=== PATIENT | female | born 1990 | race Caucasian/White ===

== ENCOUNTER 2016-12-27 16:59 | Emergency (ER) | payer SELFPAY ==
--- NOTE | ~2016-12-27 | ER ---
PATIENT'S NAME: [facility] AGE: 26 Y [address] ROOM: [place] [address] LOCATION: [facility] ADMIT DATE: 12/27/2016 ER/Outpatient Report DISCHARGE DATE: 12/27/2016 FAMILY PHYSICIAN: Kiko Chadwick MD ATTENDING PHYSICIAN: Kraig Lee TIME OF ARRIVAL: 1701 hours. TIME OF EXAM: 1701 hours. CHIEF COMPLAINT: Back pain. HISTORY OF PRESENT ILLNESS: The patient was seen today at [facility] by Dr. Chadwick, diagnosed with a UTI, was given a shot of an antibiotic and a prescription for Levaquin and Zofran. They told her and her if things were no better that she should come to the hospital. Symptoms all began approximately 7 days ago, intensified in the last 2 days, and that she developed a fever. She did take some Tylenol this morning, but has not had any this afternoon. ALLERGIES: NO KNOWN ALLERGIES. MEDICATIONS: No current medications. PAST MEDICAL HISTORY: Benign. PAST SURGERIES: Negative. SOCIAL HISTORY: Lives with her . Denies use of alcohol, drugs, or tobacco. REVIEW OF SYSTEMS: All negative other than those mentioned in the HPI. PHYSICAL EXAMINATION: VITAL SIGNS: Weight 69.2 kg. Blood pressure is 105/73, pulse of 135, respirations 16, temp of 103.6, and O2 sat is 98% on room air. GENERAL: She is awake, alert, and oriented x4. PATIENT'S NAME: [facility] AGE: 26 Y [address] ROOM: [place] [address] LOCATION: [facility] ADMIT DATE: 12/27/2016 ER/Outpatient Report DISCHARGE DATE: 12/27/2016 FAMILY PHYSICIAN: Kiko Chadwick MD ATTENDING PHYSICIAN: Kraig Lee SKIN: [place], warm, and dry. RESPIRATIONS: Even and nonlabored. Lung sounds are clear throughout. HEART: Regular rate and rhythm, tachycardic. ABDOMEN: Soft and nondistended. Bowel sounds are present. She is tender in the right flank area. EMERGENCY DEPARTMENT COURSE: Saline lock was initiated. Fluids of normal saline were started at a wide- open rate. She was given Zofran 4 mg IV. Lab work was drawn. CBC was within normal limits. Chem panel: Sodium is 135, potassium 3.3, chloride 101, and BUN is 7 with a creatinine 0.9. She was monitored for approximately half-an- hour and states her stomach was feeling better. She was given Tylenol 1000 mg p.o. Continue to monitor. When fluids were completed she states she was feeling better. Recheck vital signs show blood pressure of 101/60, pulse of 116, respirations 16, temp of 101.1, and O2 sats continues to be 97% on room air. IMPRESSION: Recent urinary tract infection and mild dehydration. PLAN: The patient will be discharged home. Rest, fluids. Take the Levaquin as prescribed. Take the Zofran as needed. Tylenol or ibuprofen routinely for fever. Follow up with Dr. Chadwick if symptoms persist in the next 2-3 days or return to the ER. Her and her verbalized understanding. MELANY ZIMMER APRN FOR [facility]/gladys /[id number] d: 12/28/16 0003 t: 01/06/17 0638, OUTPATIENT REPORT
[2016-12-27 17:26] LABS: BASOPHIL % 0.3 %; EOSINOPHIL % 0.1 %; HEMATOCRIT 36.7 % (33.0-46.0); HEMOGLOBIN 12.4 g/dL (11.0-15.0); IMMATURE GRANULOCYTE % 0.3 %; LYMPHOCYTE # 0.7 K/uL (0.8-4.0); MCH 30.7 pg (27.0-34.0); MCHC 33.8 gm/dL (32.0-36.5); MCV 90.8 fl (83.0-98.0); MONOCYTE # 0.9 K/uL (0.0-1.0); MONOCYTE % 8.1 %; MPV 11.2 fl (9.4-12.4); NEUTROPHIL # (ANC) 9.4 K/uL (1.8-7.8); NEUTROPHIL % 85.2 %; NRBC % 0 /100WBC (0-0.00); PLATELET COUNT 163 K/uL (150-450); RBC 4.04 M/uL (3.50-5.00)
[2016-12-27 17:50] LABS: ALBUMIN 3.2 gm/dL (3.5-5.0); ALK PHOS 171 IU/L (33-138); ALT 63 IU/L (12-78); ANION GAP 16.3 (10.0-19.0); AST 53 IU/L (10-40); BLOOD UREA NITROGEN 7 mg/dL (6-24); CALCIUM 8.9 mg/dL (8.5-10.5); CHLORIDE 101 mMol/L (96-110); CO2 21 mMol/L (22-32); CREATININE 0.9 mg/dL (0.5-1.1); ESTIMATED GFR (MDRD EQUATION) > 60; POTASSIUM 3.3 mMol/L (3.7-5.1); SODIUM 135 mMol/L (135-145); TOTAL BILIRUBIN 0.8 mg/dL (0.0-1.5); TOTAL PROTEIN 8.3 g/dL (6.0-8.4)
== END 2016-12-27 18:57 | disposition disaster alternative care site (69) ==
LOC: GMED 16:59
PROVIDERS: Nurse Practitioner Family
DX: N39.0 Urinary tract infection, site not specified (principal); E86.0 Dehydration
CPT/HCPCS: J2405; J7030